=== PATIENT | female | born 1955 | race Caucasian/White ===

== ENCOUNTER 2024-11-05 21:51 | Emergency (ER) | payer MEDICARE, OTHER ==
[~2024-11-05] VITALS: Ht 160 cm; Wt 54.4 kg
[2024-11-05] MEDS ORDERED: MORPHINE SULFATE INJ 4 MG/ML DISP.SYRIN ONE (23:08)
[2024-11-05] MEDS: MORPHINE SULFATE INJ 2 MG/ML DISP.SYRIN IM ONE (23:15)
[2024-11-06] MEDS ORDERED: PROPOFOL 20 ML IV ONE (00:06)
[2024-11-06] MEDS: PROPOFOL 200 MG/20 ML VIAL IV ONE (00:36)
[2024-11-06] MEDS: IV NS 0.9% 1,000 ML BAG IV ONE (00:42)
[2024-11-06] MEDS ORDERED: HYDR-3972 PO (01:04)
[2024-11-06] MEDS ORDERED: MORPHINE SULFATE INJ 4 MG/ML DISP.SYRIN ONE (01:31)
[2024-11-06] MEDS: MORPHINE SULFATE INJ 2 MG/ML DISP.SYRIN IV ONE (01:37)
[2024-11-06 02:26] VITALS: BP 134/90; TEMP 98; O2SAT 100
== END 2024-11-06 02:26 | disposition home or self-care (01) ==
LOC: EDUNIT# 21:51 → ER 23:38
DX: S53.095A Other dislocation of left radial head, initial encounter (principal); S52.532A Colles' fracture of left radius, initial encounter for closed fracture; I10 Essential (primary) hypertension; E11.9 Type 2 diabetes mellitus without complications; Y04.0XXA Assault by unarmed brawl or fight, initial encounter; Y93.89 Activity, other specified; Y92.098 Other place in other non-institutional residence as the place of occurrence of the external cause; Y99.8 Other external cause status
CPT/HCPCS: 25605; 99152; 73090; 96372; 99291; 96374; 96361; 73110; J2270 ×2; J2704; G0500